=== PATIENT | male | born 1950 | race Caucasian/White ===

== ENCOUNTER → 2017-05-21 | Outpatient (CLI) | payer BC ==
--- NOTE | 2017-05-21 15:31 | DIAGNOSTIC IMAGING REPORT ---
CHEST 2 VIEWS ROUTINE CLINICAL HISTORY: 66 years-old Male presenting with [id number]. TECHNIQUE: PA and lateral views of the chest were obtained. COMPARISON: None. FINDINGS: Median sternotomy wires and prosthetic mitral valve. Cardiac silhouette normal in size. Lungs and pleural spaces clear. Osseous structures normal. Upper abdomen normal. IMPRESSION: 1. No acute cardiopulmonary disease. Electronically signed by: Vidal Kohler M.D. 05/21/2017 3:29 PM Dictated Date/Time: 05/21/2017 3:29 PM
== END | disposition home or self-care (01) ==
LOC: C.RAD1850 14:50
PROVIDERS: ATTEND Internal Medicine Pulmonary Disease
DX: R05 Cough (principal)